=== PATIENT | male | born 1945 | race Caucasian/White ===

== ENCOUNTER → 2018-08-10 14:17 | Outpatient (CLI) | payer MEDICARE, SELFPAY ==
[2018-08-10 14:48] LABS: Basophils % 0.5 % (0.1-2.0); Eosinophils # 0.3 K/mm3 (0.0-0.4); Hematocrit 41.7 % (42.0-52.0); Hemoglobin 13.9 g/dL (14.1-18.0); Lymphocytes # 1.6 K/mm3 (0.7-4.5); Lymphocytes % 24.9 K/mm3 (10-50); Mean Corpuscular HGB Conc 33.4 g/dL (31.8-35.4); Mean Corpuscular Volume 101.6 fl (80-94); Mean Platelet Volume 7.8 fl (7.4-10.4); Monocytes # 0.3 K/mm3 (0.1-1.0); Monocytes % 4.6 % (1.7-9.3); Neutrophils # 4.3 K/mm3 (1.8-7.8); Platelet Count 185 K/mm3 (142-424); Red Cell Distribution Width 13.4 % (11.5-17.5); White Blood Count 6.5 K/mm3 (4.8-10.8)
[2018-08-10 15:47] LABS: Hemoglobin A1C 6.2 % (0.0-7.0)
[2018-08-10 15:51] LABS: Alanine Aminotransferase 34 U/L (12-78); Albumin/Globulin Ratio 1.5 (1.1-1.8); Alkaline Phosphatase 123 U/L (46-116); Anion Gap 10.7 mEq/L (5-15); Aspartate Amino Transferase 24 U/L (15-37); Bilirubin,Total 0.5 mg/dL (0.2-1.0); Blood Urea Nitrogen 19 mg/dL (7-18); Carbon Dioxide 28 mmol/L (21.0-32.0); Chloride 112 mmol/L (98-107); Creatinine,Serum 1.21 mg/dL (0.70-1.30); Estimated Glomerular Filt Rate 59 ml/min (>60); GFR (African American) 71 ML/MIN (>60); Globulin 2.6 gm/dl (1.3-3.2); Glucose 77 mg/dL (74-106); Potassium 4.7 mmoL/L (3.5-5.1); Sodium 146 mmol/L (136-145); Thyroid Stimulating Hormone 3.71 uIU/ml (0.358-3.740); Total Protein,Serum 6.6 gm/dL (6.4-8.2)
[2018-08-11 07:38] LABS: Folate 11.6 ng/mL (>3.0)
[2018-08-12 07:29] LABS: Vitamin B12 342 pg/mL (232-1245)
== END ==
PROVIDERS: PCP Specialist; Visit Provider Specialist
DX: E11.42 Type 2 diabetes mellitus with diabetic polyneuropathy (principal); E11.8 Type 2 diabetes mellitus with unspecified complications; M47.22 Other spondylosis with radiculopathy, cervical region; M54.12 Radiculopathy, cervical region
CPT/HCPCS: 36415; 80053; 82607; 82746; 83036; 84443; 85025

== ENCOUNTER → 2018-08-12 09:16 | Outpatient (CLI) | payer MEDICARE, SELFPAY ==
--- NOTE | 2018-08-12 09:17 | MR_ITS ---
MR cervical spine wo/w con, MR 3-d myelogram/MRCP HISTORY: HX neck surgery X10yrs. Headache. burning sensation LT side of neck. X2-3YRS. ITS.REASON: pain ORDERING PHYSICIAN: Radha Booth MD PATIENT AGE: 73 years Comparison: None TECHNIQUE: Standard multiplanar multiecho sequences are performed without and with gadolinium enhancement. 3-D MIP and myelographic images are also rendered and reviewed FINDINGS: The craniocervical junction has an unremarkable appearance. C2-C3: There is minimal anterolisthesis of C2 on C3 of 4 mm with small broad-based central disc protrusion without impingement. Left-sided foraminal narrowing is present from facet and uncovertebral hypertrophy. C3-C4: Severe degenerative disc disease with bulging disc/disc osteophyte complex. There is moderate to severe canal stenosis of 7 mm with mild impingement upon the anterior aspect of the cord and mild cord flattening. There is bilateral lateral recess and foraminal narrowing from facet and uncovertebral hypertrophy. Prominent anterior osteophytes also noted at this level C4-C5: Mild degenerative disc disease with mild anterolisthesis of C4 of 3 mm. Bilateral foraminal narrowing from facet and uncovertebral hypertrophy. There has been prior anterior cervical disc fusion at C5-C6 and C7 with moderate degree of artifact from the metallic hardware. These levels are difficult to evaluate due to the artifact. The canal is narrowed in AP dimension at C5 and C6 and C6-C7. The spinal cord appears somewhat widened at C7. There is mild bulging disc at C6-C7 with canal stenosis. This is of questionable clinical significance. No abnormal enhancement is evident at this region. C7-T1: Degenerative disc disease with bulging disc/disc osteophyte complex with narrowing of the canal at 10 mm. C7-T1: Mild kyphosis is present at C7-T1. There are anterior osteophytes and a bulging disc with mild narrowing of the canal at 10 mm. IMPRESSION: 1. Abnormal MRI of the cervical spine with multiple abnormalities as detailed above. Please see above for detailed description at each level. 2. Postsurgical changes anterior cervical disc fusion at C5-C6 and C6-C7 with moderate degree of artifact precluding fine detail at these levels. There is narrowing of the canal at 10 mm at these levels with bulging disc at C6-C7 and mild widening of the cord at C7 without enhancement. 3. Moderate to severe canal stenosis at C3-C4 with bulging disc/disc osteophyte complex and mild impingement upon the cord with bilateral lateral recess and foraminal narrowing
--- NOTE | 2018-08-12 10:13 | [facility].ITSHM ---
TERASOZIN GABEBENTINE BENAZEPRIL ATORVASTATIN OMEPRAZOLE PRROXETINE DILTIAZEM CLOPIDRGREL MELOXICAM NOVOLIN
== END ==
PROVIDERS: PCP Specialist; Visit Provider Specialist
DX: E11.42 Type 2 diabetes mellitus with diabetic polyneuropathy (principal); E11.8 Type 2 diabetes mellitus with unspecified complications; M47.22 Other spondylosis with radiculopathy, cervical region; Z79.4 Long term (current) use of insulin
CPT/HCPCS: 72156; 76376; A9576

== ENCOUNTER → 2018-08-31 09:43 | Outpatient (POV) | payer MEDICARE, SELFPAY | PROVIDERS: Visit Provider Specialist | DX: M47.22 Other spondylosis with radiculopathy, cervical region (principal); M47.12 Other spondylosis with myelopathy, cervical region; E11.42 Type 2 diabetes mellitus with diabetic polyneuropathy; E11.8 Type 2 diabetes mellitus with unspecified complications | CPT/HCPCS: 95886; 95911 ==